=== PATIENT | male | born 1945 | race Caucasian/White ===

== ENCOUNTER 2017-11-27 20:24 | Emergency (ER) | payer OTHER ==
[2017-11-27] MEDS ORDERED: SILVER NITRATE APPLICATOR 1 APPL TP ONE ×2 (20:40→20:42)
[2017-11-27] MEDS ORDERED: OXYMETAZOLINE 30 ML NASAL SPRAY ONE (20:40)
[2017-11-27] MEDS ORDERED: OXYMETAZOLINE 30 ML NASAL SPRAY EACHNARE ONE (20:41)
[2017-11-27] MEDS ORDERED: CEPHALEXIN 500MG PREPACK#4 BTL TAKEHOME ONE (21:44)
[2017-11-27] MEDS ORDERED: OXYCODONE/APAP 5/325MG PREPACK#4 BTL TAKEHOME ONE (21:44)
[2017-11-27] MEDS ORDERED: OXYCODONE/APAP 5/325 TAB PO ONE (21:44)
--- NOTE | 2017-11-27 21:44 | EDPHY ---
General Narrative: CHIEF COMPLAINT: Nosebleed HISTORY OF PRESENT ILLNESS: Patient complains of nosebleed that started 4:15 p.m.. He was not doing anything strenuous. Started spontaneously from the right nostril. He reports heavy bleeding. No lightheadedness or dizziness. No chest pain. His blood pressure has not been abnormal. He does not take any anticoagulants. He has had ongoing problems with epistaxis. He has been seen by ENT YIN Russell. On Tuesday morning she performed a cautery in the office. She instructed him to return to the office if this happens again, given the timing he was unable to do so. He has no bleeding from any other site. No rash. No other associated complaints or modifying factors. REVIEW OF SYSTEMS: Ten systems reviewed and are negative unless otherwise noted in the HPI PCP: Dr. Cordon SPECIALISTS: ENT Eva Russell PAST MEDICAL HISTORY: Hypertension, hypothyroid, insomnia, epistaxis PAST SURGICAL HISTORY: Recent cautery of the right nostril. YONY SOCIAL HISTORY: Nonsmoker. Lives and works here locally with spouse FAMILY HISTORY: Noncontributory EXAMINATION General Appearance: Alert, no distress Head: normocephalic, atraumatic Eyes: Pupils equal and round, no conjunctival pallor or injection ENT, Mouth: Mucous membranes moist. Uvula is midline. The airway is widely patent. There is dried blood on the right nostril and in the right side of the nose. There is no bleeding in the posterior pharynx noted. Neck: Normal inspection, supple, non-tender Respiratory: No retractions or distress. Cardiovascular: Regular rate. Symmetric radial pulses 2+. Neurological: A&O, nonfocal, normal gait Skin: Warm and dry, no rash. No petechiae purpura Extremities: Nontender, no pedal edema Psychiatric: Mood and affect normal DIFFERENTIAL DIAGNOSES: Including but not limited to anterior epistaxis, posterior epistaxis MDM: 9:10 p.m. Right-sided epistaxis. This has stopped spontaneously with Afrin administration nasal pressure. I cannot identify the bleeding source. He does not take any anticoagulants. I do not appreciate any posterior bleed by direct laryngoscopy. Monitor and recheck. Laboratory studies ordered at the request. 9:30 p.m. Patient re-evaluated. He still has not had any bleeding would like to proceed with the rhino rocket placement prophylactically. I do agree that this is reasonable given the patient's history of bleeding recently. We discussed risks and benefits of the like to proceed. 9:55 p.m. Patient re-evaluated. Resting comfortably. Pain was 7/10, thus Percocet was ordered. Additionally he will go home with Keflex 500 mg every 6 hr. They have established with Eva Callahan, ENT. They will follow up with her tomorrow in the office. CBC is unremarkable. He will return here for any bleeding around the rhino rocket or bleeding down the throat. He will return for any chest pain, shortness of breath, lightheadedness or dizziness. PROCEDURE: Epistaxis management Indication: epistaxis, right nostril Consent: verbal Description: After verbal consent. A 7.5 cm anterior-posterior rhino rocket was irrigated with sterile water. It was wrapped with bacitracin and Surgicel. Inserted successfully and inflated with sterile water. Tolerated well. Good tamponade. No bleeding posteriorly after procedure. Follow-up: ENT in 2-3 days SUPERVISION: Patient was independently examined, but I discussed the case with my secondary supervising physician Dr. Zhao - History Smoking Status: Never smoked - Objective Vital Signs: Initial Vital Signs Temperature (C) 97.3 F 11/27/17 20:27 Heart Rate 74 11/27/17 20:27 Respiratory Rate 20 11/27/17 20:27 Blood Pressure 135/77 H 11/27/17 20:27 O2 Sat (%) 96 11/27/17 20:27 O2 Delivery Mode Room Air Allergies/Adverse Reactions: Sulfa (Sulfonamide Antibiotics) Allergy (Unknown, Verified 11/27/17 20:27) EGG PLANT, OYSTERS Allergy (Uncoded 11/27/17 20:27) Home Medications: Medication Instructions Recorded Acetaminophen [Tylenol ES 500 mg 500 mg PO BIDMEAL 08/08/15 (*)] Cyanocobalamin [Vitamin B12 (*)] 1,000 mcg PO DAILY 08/08/15 Eszopiclone [Lunesta] 3 mg PO HS PRN 08/08/15 Herbals/Supplements -Info Only 1 ea PO DAILY 08/08/15 Levothyroxine [Synthroid 25 mcg 25 mcg PO DAILY06 08/08/15 (*)] Vitamin C 1000mg 1 tab PO DAILY 10/09/15 Zolpidem Tartrate [Ambien 5MG (*)] 5 mg PO HS PRN 08/08/15 Aspirin EC [Aspirin EC 81 mg (*)] 81 mg PO DAILY #30 tab 08/20/15 Ferrous Sulfate [Slow Fe 140 MG 140 mg PO DAILY #30 tab.er 08/20/15 (*)] Ondansetron Odt [Zofran Odt 4 mg 4 - 8 mg PO Q6 PRN #0 tab 08/20/15 (*)] Rivaroxaban [Xarelto 10mg (*)] 10 mg PO DAILY #35 tab 08/20/15 oxyCODONE IR [Oxycodone Ir (*)] 5 - 15 mg PO Q3 PRN #0 tab 08/20/15 traMADol [Ultram 50 mg (*)] 100 mg PO BID #0 tab 08/20/15 Medications Given: Discontinued Medications Oxymetazoline HCl (Afrin Nasal [place]) 2 sprays EACHNARE EDNOW ONE Stop: 11/27/17 20:42 Last Admin: 11/27/17 20:49 Dose: 2 puffs Silver Nitrate/Potassium Nitrate (Silver Nitrate Applicator) 1 each TP EDNOW ONE Stop: 11/27/17 20:43 Last Admin: 11/27/17 21:11 Dose: Not Given Departure - Departure Disposition: Home, Routine, Self-Care Clinical Impression: Acute anterior epistaxis Condition: Good Instructions: Nosebleed (ED) Additional Instructions: 1. Keflex 500 mg every 6 hr 2. Pain medication as prescribed as needed 3. Follow up with her established ENT physician or PA tomorrow 4. Return to emergency department for any bleeding, bleeding sensation in the posterior throat, lightheadedness, dizziness or chest pain Referrals: ANEUDY CORDON [Primary Care Provider] - As per Instructions Eva Russell PA [Physician Chemistry Faculty Member] - As per Instructions
[2017-11-27 22:12] VITALS: BP 132/81; PULSE 76; RESP 16; TEMP 98.6; O2SAT 93
[2017-11-27 22:16] LABS: INR 1.12 (0.83-1.16); PROTIME(PATIENT) 14.6 SEC (12.0-15.0)
== END 2017-11-27 22:10 | disposition home or self-care (01) ==
PROC: 2Y41X5Z Packing of Nasal Region using Packing Material (ICD-10-PCS; principal; 2017-11-27)
DX: R04.0 Epistaxis (principal); I10 Essential (primary) hypertension; Z79.82 Long term (current) use of aspirin

== ENCOUNTER 2018-05-03 08:52 | Emergency (ER) | payer OTHER ==
--- NOTE | 2018-05-03 09:01 | EDPHY ---
H & P Time Seen by Provider: 05/03/18 09:01 HPI/ROS: CHIEF COMPLAINT: Abdominal pain for 4 days HISTORY OF PRESENT ILLNESS: Patient presents with left lower quadrant abdominal pain for the past 4 days. Mild to moderate, not associated with fever chills nausea vomiting or diarrhea. Does not radiate. Concerned because a relative of"peritonitis."A little bit worse with walking or standing, better with being still. REVIEW OF SYSTEMS: Eye: no change in vision ENT: no sore throat Cardiac: no chest pain or syncope Pulmonary: no cough or SOB Abdomen: HPI Musculoskeletal: no back pain Skin: no rash Neuro: no headache Constitutional: no fever : no urinary symptoms A comprehensive 10 point review of systems is otherwise negative aside from elements mentioned in the history of present illness. PAST MEDICAL HISTORY: Hypothyroid and osteoarthritis Social history: Nonsmoker General Appearance: Alert and conversant, cooperative. Eyes: No scleral icterus. ENT, Mouth: Normal mucous membranes. Respiratory: Normal respiratory effort, breath sounds equal, lungs are clear to auscultation. Cardiovascular: Regular rate and rhythm. Gastrointestinal: No hernia, normal male , left lower quadrant tenderness. Bowel sounds present. Neurological: Alert, face symmetric, normal motor and sensory in extremities. Skin: Warm and dry, no rashes. Musculoskeletal: No peripheral edema. Psychiatric: Not agitated. Emergency Department course/MDM: I-STAT creatinine 0.9, CT discussed and consented. 1118: Sigmoid diverticulitis per Matt without perforation or abscess. 1151: Results discussed with the patient including black box warning for quinolones, I think benefit outweighs risk in this patient. Bowenro and yl, does not have high risk features to mandate inpatient, he would like to be treated at home. I think this is reasonable. Smoking Status: Never smoked Constitutional: Initial Vital Signs Temperature (C) 36.7 C 05/03/18 08:53 Heart Rate 56 L 05/03/18 08:53 Respiratory Rate 16 05/03/18 08:53 Blood Pressure 126/97 H 05/03/18 08:53 O2 Sat (%) 97 05/03/18 08:53 O2 Delivery Mode Room Air Allergies/Adverse Reactions: Sulfa (Sulfonamide Antibiotics) Allergy (Mild, Verified 05/03/18 09:05) hematuria as kid EGG PLANT, OYSTERS Allergy (Uncoded 11/27/17 20:27) Home Medications: Medication Instructions Recorded Levothyroxine [Synthroid 25 mcg 25 mcg PO DAILY06 08/08/15 (*)] Zolpidem Tartrate [Ambien 5MG (*)] 5 mg PO HS PRN 08/08/15 Ciprofloxacin HCl [Ciprofloxacin] 500 mg PO BID #20 tab 05/03/18 Tamsulosin HCl [Flomax 0.4 MG (*)] 0.4 mg PO 05/03/18 metroNIDAZOLE [Metronidazole] 500 mg PO Q8H #30 tab 05/03/18 Medical Decision Making - Diagnostics Imaging Results: Imaging Impressions Abdomen CT 05/03/18 09:13 Impression: Acute proximal sigmoid diverticulitis with diffuse constipation, but no current large bowel obstruction or free air. Results called and discussed with JESUS MCALLISTER, at 05/03/2018 11:17 General information for patients regarding this examination can be found at [email or web address]. If you have questions or comments about this report, please contact me at (hospital) or [phone] (cell). Imaging: Discussed imaging studies w/ machine scallop cutter Radiologist, I viewed and interpreted images myself Differential Diagnosis: Differential including but not limited to bowel obstruction, diverticulitis, intestinal perforation, colitis, renal colic - Data Points Laboratory Results: Laboratory Results 05/03/18 09:10 05/03/18 09:10 05/03/18 05/03/18 05/03/18 11:30 09:11 09:10 WBC RBC Hgb POC Hgb 17.0 gm/dL gm/dL (13.7-17.5) Hct POC Hct 50 % % (40-51) MCV MCH MCHC RDW Plt Count MPV Neut % (Auto) Lymph % (Auto) [place] % (Auto) Eos % (Auto) Baso % (Auto) Nucleat RBC Rel Count Absolute Neuts (auto) Absolute Lymphs (auto) Absolute Monos (auto) Absolute Eos (auto) Absolute Basos (auto) Absolute Nucleated RBC Immature Gran % Immature Gran # POC Sodium 143 mEq/L mEq/L (135-145) Sodium 144 mEq/L mEq/L (135-145) POC Potassium 3.9 mEq/L mEq/L (3.3-5.0) Potassium 4.2 mEq/L mEq/L (3.3-5.0) POC Chloride 103 mEq/L mEq/L (97-110) Chloride 105 mEq/L mEq/L (97-110) Carbon Dioxide 26 mEq/l mEq/l (22-31) Anion Gap 13 mEq/L mEq/L (8-16) POC BUN 19 mg/dL mg/dL (7-23) BUN 19 mg/dL mg/dL (7-23) Creatinine 0.8 mg/dL mg/dL (0.7-1.3) POC Creatinine 0.9 mg/dL mg/dL (0.7-1.3) Estimated GFR > 60 Glucose 93 mg/dL mg/dL (70-100) POC Glucose 96 mg/dL mg/dL (70-100) Calcium 9.4 mg/dL mg/dL (8.5-10.4) Urine Color YELLOW Urine Appearance CLEAR Urine pH 7.0 (5.0-7.5) Ur Specific [place] 1.019 (1.002-1.030) Urine Protein NEGATIVE (NEGATIVE) Urine Ketones NEGATIVE (NEGATIVE) Urine Blood NEGATIVE (NEGATIVE) Urine Nitrate NEGATIVE (NEGATIVE) Urine Bilirubin NEGATIVE (NEGATIVE) Urine Urobilinogen NEGATIVE EU EU (0.2-1.0) Ur Leukocyte Esterase NEGATIVE (NEGATIVE) Urine Glucose NEGATIVE (NEGATIVE) 05/03/18 09:10 WBC 7.60 10^3/uL 10^3/uL (3.80-9.50) RBC 5.22 10^6/uL 10^6/uL (4.40-6.38) Hgb 15.7 g/dL g/dL (13.7-17.5) POC Hgb Hct 47.4 % % (40.0-51.0) POC Hct MCV 90.8 fL fL (81.5-99.8) MCH 30.1 pg pg (27.9-34.1) MCHC 33.1 g/dL g/dL (32.4-36.7) RDW 13.2 % % (11.5-15.2) Plt Count 213 10^3/uL 10^3/uL (150-400) MPV 10.6 fL fL (8.7-11.7) Neut % (Auto) 76.1 % H % (39.3-74.2) Lymph % (Auto) 13.4 % L % (15.0-45.0) [place] % (Auto) 8.0 % % (4.5-13.0) Eos % (Auto) 1.4 % % (0.6-7.6) Baso % (Auto) 0.7 % % (0.3-1.7) Nucleat RBC Rel Count 0.0 % % (0.0-0.2) Absolute Neuts (auto) 5.78 10^3/uL 10^3/uL (1.70-6.50) Absolute Lymphs (auto) 1.02 10^3/uL 10^3/uL (1.00-3.00) Absolute Monos (auto) 0.61 10^3/uL 10^3/uL (0.30-0.80) Absolute Eos (auto) 0.11 10^3/uL 10^3/uL (0.03-0.40) Absolute Basos (auto) 0.05 10^3/uL 10^3/uL (0.02-0.10) Absolute Nucleated RBC 0.00 10^3/uL 10^3/uL (0-0.01) Immature Gran % 0.4 % % (0.0-1.1) Immature Gran # 0.03 10^3/uL 10^3/uL (0.00-0.10) POC Sodium Sodium POC Potassium Potassium POC Chloride Chloride Carbon Dioxide Anion Gap POC BUN BUN Creatinine POC Creatinine Estimated GFR Glucose POC Glucose Calcium Urine Color Urine Appearance Urine pH Ur Specific [place] Urine Protein Urine Ketones Urine Blood Urine Nitrate Urine Bilirubin Urine Urobilinogen Ur Leukocyte Esterase Urine Glucose Medications Given: Discontinued Medications Ciprofloxacin (Cipro) 500 mg PO EDNOW ONE PRN Reason: Protocol Stop: 05/03/18 11:54 Last Admin: 05/03/18 11:58 Dose: 500 mg Metronidazole (Flagyl) 500 mg PO EDNOW ONE PRN Reason: Protocol Stop: 05/03/18 11:54 Last Admin: 05/03/18 11:58 Dose: 500 mg Point of Care Test Results: Chemistry 05/03/18 09:11 POC Sodium 143 mEq/L mEq/L (135-145) POC Potassium 3.9 mEq/L mEq/L (3.3-5.0) POC Chloride 103 mEq/L mEq/L (97-110) POC BUN 19 mg/dL mg/dL (7-23) POC Creatinine 0.9 mg/dL mg/dL (0.7-1.3) POC Glucose 96 mg/dL mg/dL (70-100) ISTAT H&H 05/03/18 09:11 POC Hgb 17.0 gm/dL gm/dL (13.7-17.5) POC Hct 50 % % (40-51) Departure - Departure Disposition: Home, Routine, Self-Care Clinical Impression: acute sigmoid diverticulitis Condition: Good Instructions: Diverticulitis (ED) Referrals: ANEUDY KAHN [Primary Care Provider] - 05/05/18 Prescriptions: Ciprofloxacin HCl [Ciprofloxacin] 500 mg PO BID #20 tab metroNIDAZOLE [Metronidazole] 500 mg PO Q8H #30 tab
[2018-05-03] MEDS ORDERED: IOPAMIDOL (ISOVUE-300) 100 ML BTL ONE (09:29)
[2018-05-03 09:48] LABS: PLATELET COUNT 213 10^3/uL (150-400)
[2018-05-03 10:03] VITALS: BP 115/74
[2018-05-03] MEDS ORDERED: metroNIDAZOLE 500 MG TAB PO ONE (11:53)
[2018-05-03] MEDS ORDERED: CIPROFLOXACIN 500 MG TAB PO ONE (11:53)
== END 2018-05-03 12:06 | disposition home or self-care (01) ==
DX: K57.32 Diverticulitis of large intestine without perforation or abscess without bleeding (principal)
CPT/HCPCS: 74177; 99285; Q9967; 82435-PO; 82565-PO; 82947-PO; 84132-PO; 84295-PO; 84520-PO; 85014-PO

== ENCOUNTER 2018-09-27 07:31 | Inpatient (IN) | payer OTHER ==
--- NOTE | 2018-09-14 09:52 | GHP ---
DATE OF ADMISSION: 09/27/2018 He will be an a.m. admission for surgery on September 27, 2018. PROBLEM: Right hip severe degenerative arthritis. HISTORY OF PRESENT ILLNESS: The patient is a 73-year-old man admitted for a right total hip arthropl asty. He has had progressive pain in his right hip for the past year. I did his left total hip arth roplasty in 2014, and he has had an excellent result. His right hip is now very painful, and it is i nterfering with his activities and function. He will undergo a right total hip arthroplasty. PAST MEDICAL HISTORY: He is treated for hypothyroidism. He also uses Flomax for some prostate probl ems. No history of heart disease, stents, DVT, hepatitis, MRSA staph infections, sleep apnea, or ble eding problems. CURRENT MEDICATIONS: Levothyroxine 75 mcg per day, Flomax 0.4 mg daily, Zolpidem 10 mg p.r.n. for sl eep. DRUG ALLERGIES: Sulfa. When he was 4 years old he was treated with sulfa and developed hematuria. He is also allergic to erythromycin. Metal allergy: None. Latex allergy: None. SOCIAL HISTORY: The patient is . He is retired. He does not smoke cigarettes, and ani schroeder drinks beer. FAMILY HISTORY: Positive for cancer and arthritis. PHYSICAL EXAMINATION: GENERAL: He is an alert, healthy-appearing man. VITAL SIGNS: Height 5 feet 9 inches. Weight 190 pounds. BMI 28.1. EYES: Conjunctivae and sclerae are clear. Pupils are roun d and reactive. MOUTH: Good oral hygiene. No loose teeth. CHEST: Clear. HEART: Regular rhythm. No murmurs. EXTREMITIES: Pertinent findings limited to his right hip. He has full hip extension and 100 degrees of flexion. As he flexes the hip, he develops a 20-degree external rotation contract ure, and has no further internal or external rotation. Abduction 30 degrees. RADIOGRAPHS: His films show advanced degenerative arthritis of his right hip. He is bone on bone. He is a few mm short on the right side. His left total hip looks excellent. IMPRESSION ON ADMISSION: 1. Right hip severe degenerative arthritis. He is prepared for right total hip arthroplasty. 2. Three years status post successful left total hip arthroplasty. 3. Treatment for hypothyroidism. 4. Treatment for prostate/urination problems. PLAN: He will undergo a right total hip arthroplasty. The surgery has been described to him, includ ing the risks, complications, expectations, and recovery time. I have discussed with him specificall y the issues of dislocation, leg length inequality, infection, and sciatic nerve injury. He is alrea dy a little long on the right side, and I will have to be cautious with his leg lengths when trying t o achieve good stability. All his questions have been answered, and he consents to surgery. Copy requested to: Dr. Radha Sousa /[id number]/[facility] [place]
[~2018-09-27 07:31] MED LIST: POVIDONE-IODINE 20 ML in SODIUM CL IRRIG SOLUTION 500 ML IRR ONE; ROPIVACAINE 0.2% 80 MG, EPINEPHrine 0.2 MG, KETOROLAC TROMETHAMINE 30 MG in SYRINGE 0 ML IU ONE; TRANEXAMIC ACID 1,000 MG in NS 100 ML IV ONE; TRANEXAMIC ACID 3,000 MG in NS (SYRINGE) 50 ML IRR ONE; TRANEXAMIC ACID 3,000 MG/50 ML BAG IRR ONE; ceFAZolin 1 GM/5 ML SYR ONE
[2018-09-27] MEDS ORDERED: ceFAZolin 2 GM/DEXTROSE 100 ML IV ONE (07:42)
[2018-09-27] MEDS ORDERED: FAMOTIDINE 20 MG TAB PO ONE (07:42)
[2018-09-27] MEDS ORDERED: GABAPENTIN 300 MG CAP PO ONE (07:42)
[2018-09-27] MEDS ORDERED: ONDANSETRON 4 MG/2 ML VIAL IVP ONE (07:42)
[2018-09-27] MEDS ORDERED: DEXAMETHASONE 4 MG/ML VIAL IVP ONE (07:42)
[2018-09-27] MEDS ORDERED: ACETAMINOPHEN 325 MG TAB PO ONE (07:42)
[2018-09-27] MEDS ORDERED: LR 1,000 ML IV ONE (07:43)
[2018-09-27] MEDS ORDERED: MIDAZOLAM 2 MG/2 ML VIAL IVP ONE (08:31)
--- NOTE | 2018-09-27 08:31 | PDANEPAE ---
ANE Past Medical History - Cardiovascular History Hx Hypertension: No Hx Arrhythmias: No Hx Chest Pain: No Hx Coronary Artery / Peripheral Vascular Disease: No Hx CHF / Valvular Disease: No Hx Palpitations: No - Pulmonary History Hx COPD: No Hx Asthma/Reactive Airway Disease: No Hx Recent Upper Respiratory Infection: No Hx Oxygen in Use at Home: No Hx Sleep Apnea: No Sleep Apnea Screening Result - Last Documented: Negative Pulmonary History Comment: [id number], resolved. - Neurologic History Hx Cerebrovascular Accident: No Hx Seizures: No Hx Dementia: No - Endocrine History Hx Diabetes: No Hypothyroid: Yes Hyperthyroid: No Obesity: no - Renal History Hx Renal Disorders: No Renal History Comment: increased urinary frequency. - Liver History Hx Hepatic Disorders: No - Neurological & Psychiatric Hx Hx Neurological and Psychiatric Disorders: No - Cancer History Hx Cancer: No - Congenital Disorder History Hx Congenital Disorders: No - GI History GERD: no Hx Gastrointestinal Disorders: No - Other Health History Other Health History: wears reading glasses - Chronic Pain History Chronic Pain: Yes (right hip) - Surgical History Prior Surgeries: cataracts- bilaterally 2015. 08/19/15 left YONY with [facility]. T &A age 27 ANE Review of Systems Review of Systems: - Exercise capacity Exercise capacity: >=4 METS, limited by disability METS (RN): 4 METS ANE Patient History - Allergies Allergies/Adverse Reactions: Sulfa (Sulfonamide Antibiotics) Allergy (Verified 09/20/18 14:09) hematuria as kid EGG PLANT, OYSTERS Allergy (Uncoded 09/20/18 14:09) - Home Medications Home Medications: Zolpidem Tartrate [Ambien 5MG (*)] 5 mg PO HS PRN 08/08/15 [Last Taken 09/24/18] Tamsulosin HCl [Flomax 0.4 MG (*)] 0.4 mg PO HS 05/03/18 [Last Taken 09/21/18] Acetaminophen [Tylenol ES 500 mg (*)] 500 mg PO DAILY 09/18/18 [Last Taken 09/26] Ascorbic Acid [Vitamin C 500 mg (*)] 1,000 mg PO DAILY 09/18/18 [Last Taken ] Calcium Carbonate [Oyster Shell Calcium 500 mg (*)] 1,000 mg PO DAILY 09/18/18 [ Last Taken 09/21/18] Cholecalciferol Vit D3 [Vitamin D3 (*)] 5,000 units PO DAILY 09/18/18 [Last Taken 09/21/18] Herbals/Supplements -Info Only 1 ea PO DAILY 09/18/18 [Last Taken 09/21/18] Ibuprofen [Motrin (*)] 200 mg PO DAILY 09/18/18 [Last Taken 09/21/18] Levothyroxine [Synthroid 75 mcg (*)] 75 mcg PO DAILY06 09/18/18 [Last Taken ] Psyllium Husk (with Sugar) [Metamucil Packet] 2 each PO BID 09/18/18 [Last Taken 09/21/18] - NPO status NPO Since - Liquids (Date): 09/26/18 NPO Since - Liquids (Time): 18:00 NPO Since - Solids (Date): 09/26/18 NPO Since - Solids (Time): 18:00 - Anes Hx Anes Hx: no prior problems - Smoking Hx Smoking Status: Never smoked Marijuana use: No - Alcohol Use Alcohol Use: Occasionally - Family Anes Hx Family Anes Hx: neg - N/A Family Hx Anesthesia Complications: none ANE Labs/Vital Signs - Vital Signs Blood Pressure: 127/84 Heart Rate: 65 Respiratory Rate: 15 O2 Sat (%): 94 Height: 175.26 cm Weight: 86.183 kg ANE Physical Exam - Airway Neck exam: FROM Mallampati Score: Class 2 Mouth exam: normal dental/mouth exam - Pulmonary Pulmonary: no respiratory distress, no rales or rhonchi, clear to auscultation - Cardiovascular Cardiovascular: regular rate and rhythym - ASA Status ASA Status: II ANE Anesthesia Plan Anesthesia Plan: MAC, spinal Total IV Anesthesia: No
--- NOTE | 2018-09-27 08:41 | PDHPUP ---
History & Physical Update H&P update statement: This history and physical update is based on an assessment of the patient which was completed after admission or registration (within 24 hours), but prior to the surgery/procedure. H&P update: H&P reviewed & patient examined
[2018-09-27] MEDS ORDERED: PROPOFOL/EMULSION 500 MG/50 ML BOTTLE IV ONE (09:08)
[2018-09-27] MEDS ORDERED: fentaNYL 100 MCG/2 ML INJ ONE (09:08)
[2018-09-27] MEDS ORDERED: BUPIVACAINE/DEXTROSE 7.5MG/ML 2 ML SPINAL AMP SP ONE (09:08)
[2018-09-27] MEDS ORDERED: ePHEDrine SULFATE 25 MG/5 ML SYR ONE (10:10)
[2018-09-27] MEDS ORDERED: LR 500 ML IV PRN (10:24)
[2018-09-27] MEDS ORDERED: PROMETHAZINE HCL 25 MG/ML INJ IVP PRN ×2 (10:24→10:53)
[2018-09-27] MEDS ORDERED: NALOXONE HCL 0.4 MG/ML INJ IVP PRN (10:24)
[2018-09-27] MEDS ORDERED: PHENYLEPHRINE HCL 100 MCG/ML SYR IVP PRN (10:24)
[2018-09-27] MEDS ORDERED: ONDANSETRON 4 MG/2 ML VIAL IVP PRN ×2 (10:24→10:53)
--- NOTE | 2018-09-27 10:46 | POSTOPPROG ---
Post Op Note Date of Operation: 09/27/18 Surgeon: Kayode Alcantara Business Division Chair: [place] Anesthesiologist: Dr. Matt Camargo Post-op Diagnosis: Right hip severe degenerative arthritis Procedure: Right total hip arthroplasty Inf/Abcess present in the surg proc area at time of surgery?: No EBL: [phone]
[2018-09-27] MEDS ORDERED: ZOLPIDEM TARTRATE 5 MG TAB PO PRN (10:52)
[2018-09-27] MEDS ORDERED: DIPHENOXYLATE/ATROPINE LOMOTIL 1 TAB PO PRN (10:53)
[2018-09-27] MEDS ORDERED: diphenhydrAMINE 25 MG CAP PO PRN (10:53)
[2018-09-27] MEDS ORDERED: traMADol 50 MG TAB PO PRN (10:53)
[2018-09-27] MEDS ORDERED: MAGNESIUM HYDROXIDE 30 ML UDCUP PO PRN (10:53)
[2018-09-27] MEDS ORDERED: TEMAZEPAM 15 MG CAP PO PRN (10:53)
[2018-09-27] MEDS ORDERED: PROMETHAZINE HCL 25 MG SUPPR PR PRN (10:53)
[2018-09-27] MEDS ORDERED: CYCLOBENZAPRINE 10 MG TAB PO PRN (10:53)
[2018-09-27] MEDS ORDERED: METOCLOPRAMIDE 10 MG/2 ML VIAL IVP PRN (10:53)
[2018-09-27] MEDS ORDERED: BISACODYL 10 MG SUPP PR PRN (10:53)
[2018-09-27] MEDS ORDERED: LACTULOSE 20 GM/30 ML UDCUP PO PRN (10:53)
[2018-09-27] MEDS ORDERED: ONDANSETRON DISINTEGRATING 4 MG TAB PO PRN (10:53)
[2018-09-27] MEDS ORDERED: POLYETHYLENE GLYCOL 3350 17 GM PKT PO PRN (10:53)
[2018-09-27] MEDS ORDERED: oxyCODONE IR 5 MG TAB PO PRN (10:53)
[2018-09-27] MEDS ORDERED: NS 500 ML IV PRN (10:53)
--- NOTE | 2018-09-27 11:50 | POSTANESTH ---
Post Anesthetic Evaluation Cardiovascular Status: Normal, Stable Respiratory Status: Normal, Stable Level of Consciousness/Mental Status: Can Participate in Eval Pain Control: Adequate, Prn Tx Ordered Nausea/Vomiting Control: Adequate, Prn Tx Ordered Complications Possibly Related to Anesthesia: None Noted
--- NOTE | 2018-09-27 12:28 | PDMN ---
Medical Necessity Medical necessity: Pt meets IP criteria as of 09/27/2018 per and [facility] [place] [id number] ( [place] arthroplasty), Mc[place] IP only procedure.
[2018-09-27] MEDS: ACETAMINOPHEN 325 MG TAB PO SCH ×2 (12:45→17:48)
[2018-09-27] MEDS: KETOROLAC 15 MG/1 ML SDV IVP SCH ×2 (12:46→17:48)
[2018-09-27] MEDS: LR 1,000 ML IV SCH (12:49)
--- NOTE | 2018-09-27 12:58 | GOP ---
DATE OF OPERATION: 09/27/2018 SURGEON: Kayode Alcantara MD PHYSICAL THERAPIST TECHNICIAN: Jesse Colby and Kan Mckinley. ANESTHESIA: Combination of Marcaine, spinal, and IV sedation. ANESTHESIOLOGIST: Wilda Camargo DO. PREOPERATIVE DIAGNOSIS: Right hip arthritis. POSTOPERATIVE DIAGNOSIS: Right hip arthritis. PROCEDURE PERFORMED: September 27, 2018, right total hip arthroplasty, ceramic femoral head on highly cross-linked polyethylene cup liner. FINDINGS: DESCRIPTION OF PROCEDURE: The patient was given 2 g of IV Ancef preoperatively within 60 minutes of surgery. He also received IV tranexamic acid at a dose of 1000 mg. He was placed on the operating r oom table and given spinal anesthesia with Marcaine by Dr. Camargo. He was then placed supine an d given IV sedation. A Pedroza catheter was not used. He wore a CHANDRIKA stocking and SCD on the nonoperat nolan leg. He was rolled to the left lateral decubitus position. The position was secured with the pe gboard table attachment. An axillary roll was used, and all pressure points were carefully padded. I was careful to lock his pelvis in a rigid vertical position. His perineum was isolated with plasti c adhesive drapes. The right hip and right lower extremity were prepped with ChloraPrep. They were draped free using sterile sheets, stockinette, and Ioban plastic drapes. The [employer] time-out was performed to verify the correct surgical side and site and the correct patient identity. The [place] time-out was also performed. I made a 6-inch straight oblique posterolateral hip skin incision. The subcutaneous tissues were sha rply divided, and hemostasis was obtained using electrocautery. His fascia miriam was identified and s plit distally along the axis of its fibers. I then curved posteriorly and proximally split the fasci a of gluteus cathy and bluntly split the muscle fibers in line with their orientation. The Charnle y self-retaining retractor was inserted. His sciatic nerve was located, partially exposed, and prote cted throughout the procedure. The external rotators and the posterior hip capsule were divided as s eparate layers at the base of the femoral neck, tagged, and reflected posteriorly. A smooth 8-inch S teinmann pin was inserted vertically into the ilium, superior to the acetabulum. An 8-inch drill bit was inserted vertically into the greater trochanter and parallel to the first pin. The distance bet ween the 2 was measured for leg length reference. His femoral head was dislocated posteriorly. Jenise re degenerative changes were present on the femoral head. The femoral neck was osteotomized at the a ppropriate level and inclination. I was careful to preserve all the posterior capsule and most of the anterior capsule. The remnant of the damaged labrum was excised. I prepared the femur first. This allowed me to pricing director the amount of natural femoral neck anteversion. This, in turn, allowed me to later determine the correct amount of cup anteversion. He had approxi mately 10 degrees of natural femoral neck anteversion. The canal was opened laterally with a box chi martin. I hand broached sequentially up to size 6. I used a Agra Accolade II standard offset size 6 broach as a trial stem. I was careful to lateralize adequately. Appropriate retractors were inserted to expose his acetabulum. The acetabulum was reamed sequentiall y up to 56 mm. I selected a 56 mm Agra Trident II cluster hole hemispherical shell. This was tap ped securely into place in the proper degree of inclination anteversion. I used the transverse aceta bular ligament and other acetabular bony landmarks to help me properly orient the cup. Fixation was tight, and I did not think supplemental screw fixation was necessary. I performed a series of trial reductions to determine length and stability. I concluded that the siz e 6 stem with the standard offset and a 0 mm neck with a 36 mm head and a 10 degree lipped liner gave me the proper combination of appropriate length and good anterior and posterior stability. I took a cross-table AP pelvis intraoperatively. It demonstrated good position and sizing of the components and good leg length. The 10 degree lip Agra X3 highly cross-linked polyethylene liner was inserted and tapped securely into place. The Josiah Accolade II standard offset stem in a size 6 was inserted press-fit and was very tight. I did 1 final trial reduction and confirmed that the 0 neck length with a 36 mm head was the proper Combination. The Josiah Biolox Delta ceramic head with an outside diameter of 36 mm and a neck length of 0 mm was tapped securely onto the clean trunnion. The acetabulum was irrigated, cl eaned, and the hip was reduced 1 final time. He had excellent anterior and posterior stability and a ppropriate length. 40 mL of the joint anesthetic cocktail were injected into the capsule, the deep musculature, and the subcutaneous tissues along the skin edges. The joint was thoroughly irrigated 1 final time with a di lute Betadine solution. His sciatic nerve was reinspected and looked unharmed. 50 cc of tranexamic acid solution was irrigated into the joint. The external rotators and the posterior hip capsule were repaired in separate layers with #2 FiberWir e sutures through drill holes in the greater trochanter. This provided a strong posterior capsular a nd external rotator repair. The fascia miriam was closed first with 2 [id number] #2 FiberWire sut ures followed by a running #2 barbed Ethicon Stratafix PDO suture. The subcutaneous tissues were sally sed with a running 0 barbed Ethicon Stratafix Monoderm suture. The skin was closed with a running 3- 0 barbed Ethicon Stratafix Monoderm subcuticular suture. The skin edges were reapproximated and seal ed with Dermabond glue. The wound was covered with a large piece of waterproof Mepilex sterile dress ing. The Mepilex sacral dressing was also applied. A long-leg CHANDRIKA stocking and SCD applied to his right lower extremity. He wore a stocking and SCD on the opposite leg during the procedure. An abduction pillow was placed between his knees. He was david kened from anesthesia and rolled to the supine position on his [facility]. He was taken to PACU in satisfactory condition. There were no recognized intraoperative complications. The estimated blood loss was about 400 mL. The sponge and needle count were correct on 2 occasions. I used a Josiah Tritanium Trident II hemispherical cluster hole acetabular shell with an outside spike meter of 56 mm. The liner was a Josiah X3 10-degree lipped highly cross-linked liner with an inside diameter of 36 mm. The femoral component was a press-fit Josiah Accolade II standard offset stem i n size 6. His femoral head was a Josiah Biolox Delta ceramic head with a 0 neck length and a 36 mm outside diameter. Jesse Colby and Kan Mckinley acted as surgical assistants. Their assistance was a medical necess ity for safe completion of the procedure. Copy requested to: Radha Sousa MD /[id number]/MODL
[2018-09-27] MEDS: ceFAZolin 2 GM/DEXTROSE 100 ML IV SCH (17:46)
[2018-09-27] MEDS ORDERED: TAMSULOSIN HCL 0.4 MG CAP PO SCH (21:00)
[2018-09-27] MEDS: ASPIRIN 325 MG TAB PO SCH (21:59)
[2018-09-27] MEDS: FAMOTIDINE 20 MG TAB PO SCH (21:59)
[2018-09-27] MEDS: SENNOSIDES/DOCUSATE SODIUM TAB PO SCH (21:59)
[2018-09-27] MEDS: PSYLLIUM METAMUCIL 1 PKT PO SCH (22:00)
[2018-09-28] MEDS: ACETAMINOPHEN 325 MG TAB PO SCH ×3 (01:35→11:28)
[2018-09-28] MEDS: ceFAZolin 2 GM/DEXTROSE 100 ML IV SCH (01:35)
[2018-09-28] MEDS: KETOROLAC 15 MG/1 ML SDV IVP SCH ×2 (01:35→05:53)
[2018-09-28] MEDS: LR 1,000 ML IV SCH (05:55)
[2018-09-28] MEDS ORDERED: LEVOTHYROXINE 75 MCG TAB PO SCH (06:00)
--- NOTE | 2018-09-28 07:28 | SOAPPROG ---
SOAP Progress Note Assessment/Plan: Assessment: Afebrile. Awake and alert. No pain. He has been up and walking in the room. He needed the Pedroza catheter 1 time last night but has been voiding spontaneously since then. His dressing is dry. Sciatic nerve intact. H&H are good. Postop films look excellent. Plan: Up with physical therapy today. Discharge later today. 09/28/18 07:28 Objective: Vital Signs Temp Pulse Resp BP Pulse Ox 36.8 C 73 15 88/57 L 91 L 09/28/18 04:00 09/28/18 04:00 09/28/18 04:00 09/28/18 04:00 09/28/18 04:00 Laboratory Results 09/28/18 04:47 09/27/18 09/28/18 09/29/18 05:59 05:59 05:59 Intake Total 8821 Output Total 5880 Balance 175 ICD10 Worksheet Patient Problems: Problems Problem Status Onset Osteoarthritis of right hip Acute Primary osteoarthritis of left hip Acute
[2018-09-28] MEDS ORDERED: PNEUMOC 13-VAL CONJ-DIP CRM/PF 0.5 ML SYR (PREVNAR 13) IM ONE (07:40)
--- NOTE | 2018-09-28 08:01 | GDS ---
ADMISSION DIAGNOSIS: Right hip arthritis. DISCHARGE DIAGNOSIS: Right hip arthritis. OPERATION PERFORMED: 09/27/2018, right total hip arthroplasty. POSTOPERATIVE COMPLICATIONS: None. CONDITION ON DISCHARGE: Improved. DESCRIPTION OF HOSPITAL COURSE: The patient was admitted to the hospital on the morning of surgery. The same day, under a combination of Marcaine, spinal, and IV sedation, he underwent a right total h ip arthroplasty. Postoperatively, he was treated with multimodal DVT prophylaxis including aspirin. He required urinary catheterization 1 time, postoperatively but was able to void spontaneously after that. He was seen by Physical Therapy and made good progress with ambulation and stairs. [facility] his hemoglobin and hematocrit were 11.8 and 34.8. By the time of discharge, he was afebrile, his wound was clean and dry, and he was independent walking with a walker. DISPOSITION: Patient discharged to his home. He will go to outpatient physical therapy next week in my office. He may progress to full weightbearing as tolerated on the right. Continue aspirin 325 m g p.o. daily for 21 days. He has prescriptions for oxycodone, tramadol and Celebrex for pain control . Use an abduction pillow in bed for 3 weeks. Use CHANDRIKA stockings for 1 week. I will see him back in the office on October 19, 2018. If there are any problems, he is to call me at the office. Copy requested to: Radha Sousa MD /[id number]/MODL
[2018-09-28] MEDS ORDERED: FERROUS SULFATE 140 MG TAB.ER PO SCH (09:00)
[2018-09-28] MEDS: ASPIRIN 325 MG TAB PO SCH (09:44)
[2018-09-28] MEDS: FAMOTIDINE 20 MG TAB PO SCH (09:44)
[2018-09-28] MEDS: SENNOSIDES/DOCUSATE SODIUM TAB PO SCH (09:45)
[2018-09-28] MEDS: PSYLLIUM METAMUCIL 1 PKT PO SCH (09:45)
--- NOTE | 2018-09-28 09:49 | ASDISCHSUM ---
Discharge Information Plan Status:Home with No Needs Medically Cleared to Leave:09/27/2018 Discharge Date:09/27/2018 CM D/C Disposition:Home, Routine, Self-Care ADT D/C Disposition:Home, Routine, Self-Care Projected Discharge Date:09/27/2018 Transportation at D/C: Discharge Delay Reason: Follow-Up Date:09/27/2018 Discharge Slot: Final Diagnosis: Placement Information Patient Contact Information Contact Name:RADHA Relationship: Address:[address] City:[place] Alternate Phone: [facility]/Zip Code:[place] [address] Email: Financial Information Financial Class:Medicare Primary Plan Desc:MEDICARE INPATIENT Primary Plan Number:[id number] Secondary Plan Desc:SUDARSHAN Secondary Plan Number:[id number] Assessment Information LACE LACE Length of stay for Answers: Less than 1 day current admission Acuity / Level of Answers: Yes Care: Did the patient have an inpatient admission? Comorbidities - select Answers: Opioid dependence all that apply / Chronic pain Other Notes: Hypothyroid # of Emergency department Answers: 1-2 visits in the last 6 months Score: 9 Date Signed: 09/28/2018 09:47 AM Electronically Signed By:Ariadne Daly RN Case Management Discharge Plan Note Case Management Discharge Discharge Order Complete? Answers: Yes Discharge Comments Notes: 09/28/2018 Case Management Note No identified discharge case management needs. Pt to discharge home with follow up as directed. Date Signed: 09/28/2018 09:48 AM Electronically Signed By:Ariadne Daly RN Intervention Information Intervention Type:*Incorrect Registration Date of Service:09/27/2018 12:25 PM Patient Type:Inpatient Staff Member:Rocio Steve Hours: Discipline: Severity: Comment:incorrect registration on [facility]
[2018-09-28 11:41] VITALS: BP 85/54
== END 2018-09-28 12:13 | disposition home or self-care (01) | DRG 470 ==
LOC: F3N 07:31 → OBSVTOIN 10:55 → F3N 12:17
PROVIDERS: ADMIT Orthopaedic Surgery; ATTEND Orthopaedic Surgery
PROC: 0SR904Z Replacement of Right Hip Joint with Ceramic on Polyethylene Synthetic Substitute, Open Approach (ICD-10-PCS; principal; 2018-09-27 09:00)
DX: M16.11 Unilateral primary osteoarthritis, right hip (principal); Z96.642 Presence of left artificial hip joint; E03.9 Hypothyroidism, unspecified; N42.9 Disorder of prostate, unspecified
CPT/HCPCS: 97110-GP; 97116-GP; 97161-GP; 97165-GO; G8978-GP-CK; G8979-GP-CJ; G8987-GO-CI; G8988-GO-CI; G8989-GO-CI; J0171; J0690; J1100; J1885; J2250; J2405; J2704; J2795; J3010

== ENCOUNTER 2019-04-20 11:41 | Emergency (ER) | payer OTHER | END 2019-04-20 14:34 | disposition home or self-care (01) ==